=== PATIENT | female | born 1950 | race Caucasian/White ===

== ENCOUNTER 2017-05-04 08:23 | Emergency (ER) | payer MEDICAID, OTHER ==
[~2017-05-04] VITALS: Ht 160 cm; Wt 57.0 kg
[2017-05-04] MEDS ORDERED: HYDROCODONE/ACETAMINOPHEN 5/325MG TABLET PO ONE (09:00)
[2017-05-04 11:15] VITALS: BP 166/75
== END 2017-05-04 13:48 | disposition home or self-care (01) ==
LOC: ER 08:32
DX: M25.552 Pain in left hip (principal)
CPT/HCPCS: 73502; 99284; Z7610